=== PATIENT | female | born 1985 | race American Indian/Alaskan Native ===

== ENCOUNTER 2020-05-30 15:48 | Outpatient (CLI) | payer MEDICAID ==
[2020-05-30 15:53] VITALS: BP 127/84
[2020-05-30 16:56] LABS: Hematocrit 40.2 % (30.3-42.9); Hemoglobin 13.3 gm/dl (10.1-14.3); Mean Corpuscular HGB Conc 33 % (30-34); Mean Corpuscular Volume 91 fl (79-97); Platelet Count 368 K/mm3 (140-440); Red Blood Count 4.43 M/mm3 (3.65-5.03); Red Cell Distribution Width 14.9 % (13.2-15.2)
--- NOTE | 2020-05-30 17:40 | Ultrasound Report ---
TRANSABDOMINAL OB PELVIC ULTRASOUND INDICATION / CLINICAL INFORMATION: No heart tones in physician's office. COMPARISON: None available. FINDINGS: The uterus measures 9.8 x 5.2 x 6.7 cm. The endometrial stripe measures 5.6 mm AP. I do not identify an intrauterine . There is a 2 cm hypoechoic solid mass in the anterior uterine body which i s intramural/submucosal. The left ovary measures 3.9 x 2.4 x 2.3 cm and the right ovary 4.4 x 1.8 x 3.2 cm. There is no eviden ce of adnexal mass or free fluid. Normal blood flow is seen to both ovaries on Doppler exam. IMPRESSION: 1. No evidence of intrauterine or extrauterine . 2. 2 cm intramural/submucosal fibroid in the anterior uterine body. Signer Name: Costa Patterson MD Signed: 05/30/2020 5:35 PM Workstation Name: [id number]
== END 2020-05-30 16:41 | disposition home or self-care (01) ==
LOC: TRG 15:48 → APU 15:49 → TRG 16:41
PROVIDERS: ATTEND Obstetrics & Gynecology
DX: Z34.82 Encounter for supervision of other normal pregnancy, second trimester (principal); Z3A.24 24 weeks gestation of pregnancy
CPT/HCPCS: 36415; 76801; 84703; 85027